=== PATIENT | female | born 1925 | race Caucasian/White ===

== ENCOUNTER 2017-02-24 21:05 | Inpatient (IN) | payer MEDICARE ==
[2017-02-24] MEDS ORDERED: MORPHINE SULFATE 4 MG/ML SYRINGE IV STA (22:06)
[2017-02-24] MEDS ORDERED: SODIUM CHLORIDE 0.9% 1,000 ML IV STA (22:06)
[2017-02-24] MEDS ORDERED: SODIUM CHLORIDE 0.9% 500 ML IV STA (22:06)
--- NOTE | 2017-02-24 22:18 | ED ---
General Adult HPI - General Chief complaint: Fall Stated complaint: Fall Time Seen by Provider: 02/24/17 21:29 Source: EMS, RN notes reviewed, old records reviewed Mode of arrival: EMS Limitations: altered mental status - History of Present Illness Initial comments: This is an 89-year-old female in the ER for reevaluation status post fall. Patient a fall from standing fell backwards landing on leg back and right hip. Denies having had. Patient's poor strain history obtained from family who is with her, follows unwitnessed the patient was centimeters after falling, patient has a prior history of fall with left hip fracture. No blood thinners. Patient herself is complaining of pain in her right leg - Related Data Home Medications Medication Instructions Recorded Confirmed Donepezil [Aricept] 10 mg PO HS 08/23/14 02/24/17 Escitalopram [Lexapro] 10 mg PO DAILY 08/23/14 02/24/17 Melatonin 3 mg PO HS 08/23/14 02/24/17 Metoprolol Tartrate [Lopressor] 25 mg PO DAILY 08/23/14 02/24/17 Lactose-Reduced Food [Ensure Plus] 1 can PO BID 02/24/17 02/24/17 Loratadine [Claritin] 10 mg PO DAILY 02/24/17 02/24/17 Allergies Allergy/AdvReac Type Severity Reaction Status Date / Time No Known Allergies Allergy Verified 02/24/17 21:16 Review of Systems ROS Statement: Those systems with pertinent positive or pertinent negative responses have been documented in the HPI. ROS Other: All systems not noted in ROS Statement are negative. Past Medical History Past Medical History: Unable to Obtain, Dementia, Hyperlipidemia, Hypertension Additional Past Medical History / Comment(s): poor historian anxiety History of Any Multi-Drug Resistant Organisms: None Reported Past Surgical History: Unable to Obtain Additional Past Surgical History / Comment(s): poor historian Past Psychological History: Anxiety Smoking Status: Never smoker Past Alcohol Use History: None Reported Past Drug Use History: None Reported General Exam Limitations: altered mental status General appearance: alert, in no apparent distress Head exam: Present: atraumatic, normocephalic, normal inspection Eye exam: Present: normal appearance, PERRL, EOMI. Absent: scleral icterus, conjunctival injection, periorbital swelling ENT exam: Present: normal exam, mucous membranes moist Neck exam: Present: normal inspection. Absent: tenderness, meningismus, lymphadenopathy Respiratory exam: Present: normal lung sounds bilaterally. Absent: respiratory distress, wheezes, rales, rhonchi, stridor Cardiovascular Exam: Present: regular rate, normal rhythm, normal heart sounds. Absent: systolic murmur, diastolic murmur, rubs, gallop, clicks GI/Abdominal exam: Present: soft, normal bowel sounds. Absent: distended, tenderness, guarding, rebound, rigid Extremities exam: Present: normal inspection, full ROM, normal capillary refill , other (Right lower extremity is shortened). Absent: tenderness, pedal edema, joint swelling, calf tenderness Back exam: Present: normal inspection Neurological exam: Present: alert, oriented X3, CN II-XII intact Psychiatric exam: Present: normal affect, normal mood Skin exam: Present: warm, dry, intact, normal color. Absent: rash Course Vital Signs 02/24/17 21:08 Temperature 97.0 F L Pulse Rate 78 Respiratory 18 Rate Blood Pressure 162/77 O2 Sat by Pulse 93 L Oximetry EKG Findings - EKG Comments: EKG Findings:: EKG shows normal sinus rhythm rate of 81, AR 140, QRS 78, QTC 460 Medical Decision Making - Medical Decision Making And female here status post fall, right IT fracture comminuted, patient has prior orthopedic surgery by Dr. Nathaniel Montanez, patient will be admitted for surgical evaluation and treatment. Patient's pain is currently controlled - Lab Data Result diagrams: 02/24/17 22:25 Lab Results 02/24/17 02/24/17 Range/Units 22:25 22:25 WBC 18.5 H (3.8-10.6) k/uL RBC 4.38 (3.80-5.40) m/uL Hgb 13.5 (11.4-16.0) gm/dL Hct 41.5 (34.0-46.0) % MCV 94.8 (80.0-100.0) fL MCH 30.8 (25.0-35.0) pg MCHC 32.5 (31.0-37.0) g/dL RDW 13.6 (11.5-15.5) % Plt Count 311 (150-450) k/uL Neutrophils % 93 % Lymphocytes % 4 % Monocytes % 3 % Eosinophils % 0 % Basophils % 0 % Neutrophils # 17.1 H (1.3-7.7) k/uL Lymphocytes # 0.7 L (1.0-4.8) k/uL Monocytes # 0.5 (0-1.0) k/uL Eosinophils # 0.0 (0-0.7) k/uL Basophils # 0.1 (0-0.2) k/uL PT 11.0 (9.0-12.0) sec INR 1.1 (<1.1) APTT 25.1 (22.0-30.0) sec - Radiology Data Radiology results: report reviewed (X-ray right hip is positive for fracture, chest x-ray negative), image reviewed Disposition Clinical Impression: Fall, Closed right hip fracture Disposition: ADMITTED IP TO THIS [facility] Condition: Fair Referrals: None,Stated [Primary Care Provider] - 1-2 days
[2017-02-24 22:40] LABS: Basophils # (A) 0.1 k/uL (0-0.2); Basophils % (A) 0 %; CH 30.7; CHCM 32.6; Eosinophils % (A) 0 %; HCT 41.5 % (34.0-46.0); HDW 2.38; HGB 13.5 gm/dL (11.4-16.0); Luc % (Auto) 1; Lymphocytes # (A) 0.7 k/uL (1.0-4.8); Lymphocytes % (A) 4 %; MCH 30.8 pg (25.0-35.0); MCHC 32.5 g/dL (31.0-37.0); MCV 94.8 fL (80.0-100.0); Mean Platelet Volume 7.5; Monocytes # (A) 0.5 k/uL (0-1.0); Monocytes % (A) 3 %; Neutrophils # (A) 17.1 k/uL (1.3-7.7); Neutrophils % (A) 93 %; RBC 4.38 m/uL (3.80-5.40); RDW 13.6 % (11.5-15.5); WBC 18.5 k/uL (3.8-10.6); WBC (Perox) 19.59
[2017-02-24 22:49] LABS: ALT 22 U/L (9-52); AST 17 U/L (14-36); Alkaline Phosphatase 79 U/L (38-126); Anion Gap 7 mmol/L; Blood Urea Nitrogen 16 mg/dL (7-17); Calcium 8.5 mg/dL (8.4-10.2); Carbon Dioxide 28 mmol/L (22-30); Chloride 105 mmol/L (98-107); Glucose 111 mg/dL (74-99); Non-African American GFR(MDRD) >60 (>60 ml/min/1.73 sqM); Phosphorous 3.7 mg/dL (2.5-4.5); Potassium 4.2 mmol/L (3.5-5.1); Sodium 140 mmol/L (137-145); Total Bilirubin 0.4 mg/dL (0.2-1.3); Total Protein 6.3 g/dL (6.3-8.2)
[2017-02-24 22:53] LABS: INR 1.1 (<1.1); Partial Thromboplastin Time 25.1 sec (22.0-30.0)
[2017-02-24 23:06] LABS: Creatine Kinase 24 U/L (30-135)
[2017-02-24 23:17] LABS: Creatine Kinase MB 0.8 ng/mL (0.0-2.4); Troponin I <0.012 ng/mL (0.000-0.034)
--- NOTE | 2017-02-24 23:22 | XR ---
EXAM: XR Chest, 1 View. CLINICAL HISTORY: Reason: Weakness TECHNIQUE: Frontal view of the chest. COMPARISON: Chest radiograph on 09/06/2014 FINDINGS: Hardware: None. Lungs/pleura: Hyperinflation of the lungs which may be seen with COPD. Increased prominence of the pulmonary vasculature and interstitial markings bilaterally. Small left pleural effusion versus pleural thickening. No focal consolidation. No pneumothorax. Heart/mediastinum: Stable mild cardiomegaly. Atherosclerotic calcifications of the aorta. Soft tissues: Unremarkable. Bones: Degenerative changes of the shoulders and acromioclavicular joints. No acute fracture. Upper abdomen: Normal. IMPRESSION: 1. Stable mild cardiomegaly with pulmonary vasculature congestion and probable mild interstitial pulmonary edema. Small left pleural effusion versus pleural thickening. 2. Hyperinflation of the lungs may represent COPD.
--- NOTE | 2017-02-24 23:28 | XR ---
EXAM: XR Right Hip With Pelvis When Performed, 2 or 3 Views. CLINICAL HISTORY: Reason: Pain TECHNIQUE: Two or three views of the right hip, with pelvis when performed. COMPARISON: None FINDINGS: Bones/joints: Intramedullary denise and screw fixation of the left femur with healed fracture. Irregularity of the cortex of the right greater trochanter is suspicious for acute fracture. Degenerative changes of the lower lumbar spine. No hip dislocation. Soft tissues: Surgical clip overlying the medial right iliac bone. IMPRESSION: Irregularity of the cortex of the right greater trochanter suspicious for acute fracture, nondisplaced. Correlate appearance with priors if available.
[2017-02-25 00:18] LABS: Appearance,Urine Clear (Clear); Bilirubin,Urine Negative (Negative); Glucose,Urine (UA) Negative (Negative); Ketones,Urine Trace (Negative); Leukocyte Esterase,Urine Negative (Negative); Nitrite,Urine Negative (Negative); PH, Urine 6.5 (5.0-8.0); Particle Count 472; Protein,Urine Negative (Negative); RBC,Urine 11 /hpf (0-5); Specific Gravity,Urine 1.014 (1.001-1.035); Squamous Epithelial Cell,Urine <1 /hpf (0-4); UA Billing (MACRO vs. MICRO) MICRO; Urobilinogen,Urine <2.0 mg/dL (<2.0); WBC,Urine <1 /hpf (0-5)
[2017-02-25 00:49] VITALS: BMI 18.3
[2017-02-25] MEDS: ACETAMINOPHEN IV (For NPO) 1,000 MG in EMPTY BAG 1 BAG IVPB SCH ×4 (00:54→15:56)
[2017-02-25] MEDS: MORPHINE SULFATE 4 MG/ML SYRINGE IVP PRN ×3 (05:10→16:05)
[2017-02-25] MEDS: ENOXAPARIN 40 MG/0.4 ML SYRINGE SQ SCH ×2 (07:16→08:33)
--- NOTE | 2017-02-25 08:59 | P.HPOR ---
History of Present Illness H&P Date: 02/25/17 Chief Complaint: Right hip pain; status post fall; right hip fracture Patient is a 89-year-old female who is seen and examined at the bedside after she was admitted to our service for right intertrochanteric fracture. Patient sustained a fall early this morning, 02/25/2017, and was brought to the emergency department for further evaluation. Patient is confused and is not able to answer questions easily. When asked about symptoms in regards to her right hip and function of her right hip, she frequently states "Just leave it alone. It's okay." X-rays of the pelvis and right hip were taken in the emergency department that showed evidence of irregularity of the cortex of the right greater trochanter suspicious for acute fracture, nondisplaced along with evidence of previous intramedullary denise and screw fixation of the left femur that is well healed. The emergency physician stated clinically the patient presented with a right intertrochanteric hip fracture. Upon further labs, patient also has elevated white blood cell count 18.5 with increased neutrophils at 17.1. Patient does have increased pain with internal and external rotation of the right hip. Patient states her pain is controlled while lying flat in bed. Past Medical History Past Medical History: Unable to Obtain, Dementia, Hyperlipidemia, Hypertension Additional Past Medical History / Comment(s): poor historian anxiety History of Any Multi-Drug Resistant Organisms: None Reported Past Surgical History: Unable to Obtain Additional Past Surgical History / Comment(s): poor historian Past Psychological History: Anxiety Smoking Status: Never smoker Past Alcohol Use History: None Reported Past Drug Use History: None Reported Medications and Allergies Home Medications Medication Instructions Recorded Confirmed Type Donepezil [Aricept] 10 mg PO HS@199908/23/14 02/25/17 History Melatonin 3 mg PO HS@199908/23/14 02/25/17 History Lactose-Reduced Food [Ensure Plus] 1 can PO BID@1000,1900 02/24/17 02/25/17 History Loratadine [Claritin] 10 mg PO HS@199902/24/17 02/25/17 History Escitalopram Oxalate [Lexapro] 10 mg PO DAILY@0800 02/25/17 02/25/17 History Metoprolol Succinate [Toprol XL] 25 mg PO HS@199902/25/17 02/25/17 History guaiFENesin 400 mg PO QID 02/25/17 02/25/17 History Allergies Allergy/AdvReac Type Severity Reaction Status Date / Time No Known Allergies Allergy Verified 02/25/17 08:36 Physical Examination Physical exam: Patient is awake and alert, but is confused; She does have some difficulty with answering questions Vital signs stable Good chest excursion with deep inspiration and expiration Abdomen soft nontender Right lower extremity is shortened and slightly externally rotated Pain with palpation of the right hip Significant pain with internal and external rotation of the right hip No pain with internal and external rotation of the left hip Neurovascularly intact bilateral lower extremities Dorsiflexion, plantarflexion, and extensor hallucis longus positive sustained bilaterally Calves are soft and supple; No signs or symptoms of DVT; No calf pain; pneumatic cuffs intact bilateral lower extremities Results Pertinent studies: X-ray of the pelvis and right hip: Irregularity of the cortex of the right greater trochanter suspicious for acute fracture, nondisplaced; evidence of previous intramedullary denise and screw fixation of the left femur that appears to be well-healed; no evidence of hip dislocation Urine analysis: Trace ketones and urine blood; urine RBC 11 - Labs Labs: Abnormal Lab Results - Last 24 Hours (Table) 02/24/17 Range/Units 23:45 Urine Ketones Trace H (Negative) Urine Blood Trace H (Negative) Urine RBC 11 H (0-5) /hpf Result Diagrams: 02/24/17 22:25 02/24/17 22:25 Assessment and Plan (1) Right hip pain Status: Acute (2) Leukocytosis Status: Acute (3) Confusion Status: Acute (4) Closed right hip fracture Status: Acute (5) Fall Status: Acute Plan: Assessment: Status post fall Right intertrochanteric hip fracture Right hip pain Confusion Leukocytosis Plan: 1. We will currently planned to obtain a CT of the right hip for further evaluation of her right hip. If the CT confirms right intertrochanteric fracture, we will most likely plan for surgical intervention on Saturday, 02/27, pending medical clearance. At this time patient also has an increased white blood cell count 18.5 with increased neutrophils 17.1. A urinalysis was taken which does not show evidence of urinary tract infection. She'll need further evaluation by medicine. She will remain on bed rest while remaining nonweightbearing on the right lower extremity. At this time we will discontinue nothing by mouth status and she may resume a regular diet. We will continue follow patient closely. 2. Dr. Spencer in medicine has been consulted for medical clearance and for further evaluation and treatment for her other medical diagnoses 3. I have discussed this patient in detail with Dr. Neftaly Gross and he agrees with this plan Time with Patient: Less than 30
--- NOTE | 2017-02-25 10:33 | CT ---
EXAMINATION TYPE: CT hip RT wo con DATE OF EXAM: 02/25/2017 10:16 AM COMPARISON: NONE HISTORY: right hip pain CT DLP: 396.0 mGycm Automated exposure control for dose reduction was used. Unenhanced CT of the right hip was performed. Bone and soft tissue window settings are submitted. FINDINGS: There is a right-sided intratrochanteric fracture identified. Fracture component extends minimally in to the proximal femoral diaphysis. Mild cranial migration of the distal fracture component. No eviden ce for underlying pathologic component at this time. Femoral neck is intact. Acetabulum is intact. Zamora rrounding soft tissue edema is noted. No pelvic mass is identified. IMPRESSION: RIGHT-SIDED INTRATROCHANTERIC FRACTURE DISCUSSED.
[2017-02-25] MEDS ORDERED: LORazepam 2 MG/ML SYRINGE IV PRN (12:39)
[2017-02-25] MEDS: SODIUM CHLORIDE 0.9% 1,000 ML IV SCH (15:56)
[2017-02-25] MEDS: guaiFENesin SYRUP 100MG/5ML 200 MG/10 ML CUP PO SCH ×2 (16:37→22:15)
[2017-02-25] MEDS ORDERED: LORATADINE 10 MG TAB PO SCH (20:00)
[2017-02-25] MEDS: METOPROLOL SUCCINATE (ER) 25 MG TAB.ER.24H PO SCH (20:08)
[2017-02-25] MEDS: DONEPEZIL 10 MG TAB PO SCH (20:08)
--- NOTE | 2017-02-26 05:47 | CONS ---
DATE OF CONSULTATION: REASON FOR CONSULTATION: Advice regarding hypertension and other multiple medical problems and change in mental status, requested by Orthopedic Surgery. HISTORY OF PRESENT ILLNESS: This 89-year-old woman with a past history of dementia, hypertension, hyperlipidemia, history of anxiety who was brought to [facility] after a fall. Patient apparently fell backwards from standing position. Patient suffered right hip pain and the patient was admitted for further evaluation and treatment. The patient progressive change in mental status and patient is combative and restless on the floor. The white count is elevated is 18.5. UA was only showing 11 RBCs. Chest x-ray was also done, which showed hyperinflation and some vascular congestion also. Otherwise, currently the patient unable to give current history as patient is confused and most of the history is taken by my discussion with staff and as well as review of the chart at this time. Surgery is tentatively being scheduled for Saturday. PAST MEDICAL HISTORY: History of dementia, hypertension, hyperlipidemia, history of anxiety, not otherwise specified. Medications prior to admission include: 1. Guaifenesin 400 mg q.i.d. 2. Toprol XL 25 mg q.h.s. 3. Melatonin 3 mg q.h.s. 4. Claritin 10 mg q.h.s. 5. Lexapro 10 mg daily. 6. Ensure one p.o. b.i.d. 7. Aricept 10 mg q.h.s. Allergies are none. FAMILY HISTORY, SOCIAL HISTORY, REVIEW OF SYSTEMS: Could not be taken at length because of change in mental status. No history of smoking. No history of any previous family history per chart. PHYSICAL EXAM: The patient is drowsy, but confused, arousable. Pulse 97, blood pressure 132/60, respirations 17, temperature 96.1, pulse ox 93% on room air. HEENT: Conjunctivae normal. Oral mucosa moist. NECK: No jugular venous distention. No carotid bruit. No lymph node enlargement. CARDIOVASCULAR: S1 and S2, muffled. No S3, no S4. RESPIRATORY: Breath sounds diminished at the bases. No rhonchi, no crackles. ABDOMEN: Soft, nontender. LEGS: Status post hip fracture. NERVOUS SYSTEM: Higher function as mentioned. Moves all 4 limbs. No focal motor or sensory deficits. LYMPHATICS: No lymphadenopathy of neck, axillae or groin. SKIN: No ulcer, rash or bleeding. LABS: WBC 18.5, hemoglobin 13.5. Glucose 111. Albumin is 3.2. UA noted. ASSESSMENT: 1. Status post right hip fracture. 2. Change in mental status, metabolic encephalopathy, acute on chronic. 3. Increased WBC, possibly reactive. 4. History of dementia. 5. Hypoalbuminemia with mild to moderate protein calorie malnutrition. 6. Hypertension, essential. 7. Hyperlipidemia. 8. History of anxiety, not otherwise specified. 9. Body mass index 18.2 with severe protein calorie malnutrition. 10. Chronic obstructive pulmonary disease on the chest x-ray. 11. FULL CODE. RECOMMENDATIONS AND DISCUSSION: In this 89-year-old woman who presented with multiple complex medical problems, will monitor the patient closely. Continue the current medications. Continues symptomatic treatment. I would recommend Ativan p.r.n. for anxiety, Haldol also may be used for severe agitation. Other than that, I would recommend cautious IV fluids. Repeat labs. The chest x-ray was reviewed also. The EKG showed nonspecific ST changes. No acute changes are noted. Overall prognosis guarded because of multiple complex medical issues. Will monitor the patient closely. Currently, the patient is stable, cleared for surgery if the extra risks because of the multiple other medical problems was acceptable. No evidence of any obvious infection at this time. Will continue to monitor. If the white count remains elevated along with fever, the patient might benefit from antibiotics. We will continue to monitor. Further recommendations to follow. MTDD
[2017-02-26] MEDS: HALOPERIDOL 1 MG TAB PO PRN ×3 (06:27→21:54)
[2017-02-26 07:36] LABS: Basophils % (A) 0 %; CHCM 31.2; Eosinophils # (A) 0.1 k/uL (0-0.7); Eosinophils % (A) 1 %; HCT 40.7 % (34.0-46.0); HDW 2.29; HGB 12.8 gm/dL (11.4-16.0); Luc # (Auto) 0.14; Luc % (Auto) 1; Lymphocytes # (A) 0.8 k/uL (1.0-4.8); Lymphocytes % (A) 8 %; MCH 30.3 pg (25.0-35.0); MCHC 31.4 g/dL (31.0-37.0); MCV 96.7 fL (80.0-100.0); Mean Platelet Volume 7.2; Monocytes # (A) 0.5 k/uL (0-1.0); Monocytes % (A) 5 %; Neutrophils # (A) 9.2 k/uL (1.3-7.7); Neutrophils % (A) 86 %; RDW 13.7 % (11.5-15.5); WBC 10.7 k/uL (3.8-10.6); WBC (Perox) 11.39
[2017-02-26 07:48] LABS: Anion Gap 10 mmol/L; Blood Urea Nitrogen 13 mg/dL (7-17); Calcium 8.5 mg/dL (8.4-10.2); Carbon Dioxide 24 mmol/L (22-30); Chloride 106 mmol/L (98-107); Glucose 90 mg/dL (74-99); Non-African American GFR(MDRD) >60 (>60 ml/min/1.73 sqM); Sodium 140 mmol/L (137-145)
[2017-02-26 08:07] LABS: Potassium 4.1 mmol/L (3.5-5.1)
[2017-02-26] MEDS: ENOXAPARIN 40 MG/0.4 ML SYRINGE SQ SCH (08:29)
[2017-02-26] MEDS: guaiFENesin SYRUP 100MG/5ML 200 MG/10 ML CUP PO SCH ×4 (08:30→23:21)
[2017-02-26] MEDS: ESCITALOPRAM 10 MG TAB PO SCH (08:30)
--- NOTE | 2017-02-26 09:11 | P.PN ---
Progress Note - Text Patient is a 89-year-old female who is seen and examined at the bedside after she was admitted to our service for right intertrochanteric fracture. Patient sustained a fall early this morning, 02/25/2017, and was brought to the emergency department for further evaluation. Patient is still confused and is not able to answer questions easily. CT of the right hip was performed yesterday the digital right-sided intertrochanteric hip fracture. We're currently planning for surgical intervention this afternoon. Patient has been cleared by Dr. Spencer in medicine. Patient continues to have have increased pain with internal and external rotation of the right hip. Patient states her pain is controlled while lying flat in bed. Physical exam: Patient is awake and alert, but is confused; She does have some difficulty with answering questions Vital signs stable Good chest excursion with deep inspiration and expiration Abdomen soft nontender Right lower extremity is shortened and slightly externally rotated Pain with palpation of the right hip Significant pain with internal and external rotation of the right hip No pain with internal and external rotation of the left hip Neurovascularly intact bilateral lower extremities Dorsiflexion, plantarflexion, and extensor hallucis longus positive sustained bilaterally Calves are soft and supple; No signs or symptoms of DVT; No calf pain; pneumatic cuffs intact bilateral lower extremities Pertinent studies: CT of the right hip: Right-sided intertrochanteric fracture with fracture component extending minimally into the proximal femoral diaphysis with mild cranial migration of the distal fracture component; no evidence for underlying pathologic component; femoral neck intact; acetabulum intact; no evidence of pelvic mass X-ray of the pelvis and right hip: Irregularity of the cortex of the right greater trochanter suspicious for acute fracture, nondisplaced; evidence of previous intramedullary denise and screw fixation of the left femur that appears to be well-healed; no evidence of hip dislocation Urine analysis: Trace ketones and urine blood; urine RBC 11 Assessment: Status post fall Right intertrochanteric hip fracture Right hip pain Confusion Leukocytosis Plan: 1. Following results of the CT the right hip which showed evidence of right- sided intertrochanteric hip fracture, we are currently planning for surgical intervention this afternoon, 02/26/2017. Surgery scheduled for right intramedullary gamma nail fixation for right intertrochanteric hip fracture tentatively scheduled for 4:30 PM. Patient has been seen and examined by Dr. Spencer in medicine and has been cleared for surgery. Her WBC has improved from 18.5 yesterday down to 10.7 today. She is currently nothing by mouth status and will remain nothing by mouth status until following surgical intervention. She will remain nonweightbearing on the right lower extremity and remain on bedrest. We will continue with pain control as prescribed. We will continue follow patient closely. 2. Dr. Spencer in medicine has been consulted for medical clearance and for further evaluation and treatment for her other medical diagnoses; patient is cleared for surgery per Dr. Spencer 3. I have discussed this patient in detail with Dr. Neftaly Gross and he agrees with this plan
[2017-02-26] MEDS ORDERED: traMADol 50 MG TAB PO SCH (13:00)
[2017-02-26] MEDS: FAMOTIDINE 20 MG TAB PO SCH ×2 (13:15→21:54)
[2017-02-26] MEDS: SODIUM CHLORIDE 0.9% 1,000 ML IV SCH (13:16)
[2017-02-26] MEDS: traMADol 50 MG TAB PO PRN (13:18)
--- NOTE | 2017-02-26 13:18 | PN ---
Patient is an 89-year-old admitted with right intertrochanteric fracture. Patient is completely confused at this point of time, although we will avoid all the narcotics. All the Opiates, benzodiazepines will be discontinued. We will use tramadol or Toradol for pain. Patient will be started on Pepcid and Xanax will be discontinued as well. Review of systems unable to obtain due to her clinical condition. Medications reviewed and medication changes as mentioned above. PHYSICAL EXAMINATION: VITAL SIGNS: Temperature 98.1, pulse 100. Patient is a bit agitated and confused, unable to assess orientation at this point of time and patient is on a p.r.n. Haldol for agitation. HEENT: Pupils are round and equally reacting to light. EOMI. No scleral icterus. No conjunctival pallor. Normocephalic, atraumatic. No pharyngeal erythema. No thyromegaly. CARDIOVASCULAR: S1 and S2 present. No murmurs, rubs, or gallops. PULMONARY: Chest is clear to auscultation, no wheezing or crackles. ABDOMEN: Soft, nontender, nondistended, normoactive bowel sounds. No palpable organomegaly. MUSCULOSKELETAL: No joint swelling or deformity. EXTREMITIES: No cyanosis, clubbing, or pedal edema. NEUROLOGICAL: Neurological examination as mentioned above in the general exam. Does not appear to have focal deficits, moving all 4 limbs. SKIN: No rashes. LABORATORY DATA: CBC, CMP, significant for improved WBC count. ASSESSMENT AND PLAN: 1. Status post right intertrochanteric fracture, the patient is going for surgery today. Patient is low risk for surgery. 2. Altered mental status secondary to toxic metabolic encephalopathy, most probably related to medications, management as mentioned above and can be related to pain as well. 3. Leukocytosis, reactive in nature. 4. Dementia probably senile dementia, I am unable to assess the severity of dementia at this point of time because of acute delirium and encephalopathy due to above-mentioned reasons. 5. Hypertension. 6. Hyperlipidemia for which we will go ahead and continue her home medications.
[2017-02-26] MEDS ORDERED: ceFAZolin 1,000 MG in SODIUM CHLORIDE 0.9% IRRIGATIO 1,000 ML IRRIGATION ONE (15:30)
[2017-02-26] MEDS ORDERED: ceFAZolin 1,000 MG in SODIUM CHLORIDE 0.9% 1,000 ML IRRIGATION ONE ×4 (15:34)
[2017-02-26] MEDS ORDERED: LACTATED RINGERS 1,000 ML IV ONE (16:18)
[2017-02-26] MEDS ORDERED: KETAMINE 10 MG/ML 20 ML VIAL ONE (17:00)
[2017-02-26] MEDS ORDERED: PROPOFOL 10 MG/ML 20 ML VIAL IV ONE (17:00)
[2017-02-26] MEDS ORDERED: ePHEDrine 50 MG/ML 1 ML AMP ONE (17:00)
[2017-02-26] MEDS ORDERED: MIDAZOLAM 2 MG/2 ML VIAL ONE (17:00)
[2017-02-26] MEDS ORDERED: LACTATED RINGERS 800 ML IV ONE (17:00)
[2017-02-26] MEDS ORDERED: SODIUM CHLORIDE 0.9% 50 ML with ceFAZolin 2,000 MG IV ONE ×2 (17:42)
--- NOTE | 2017-02-26 18:40 | P.OP ---
Date of Procedure: 02/26/17 Preoperative Diagnosis: Right intertrochanteric hip fracture, acute traumatic status post fall with osteoporosis Inability to ambulate Postoperative Diagnosis: Same Anesthesia: spinal Pathology: other (Proximal femur reaming sent to pathology) Condition: stable Disposition: PACU Description of Procedure: Preoperative diagnosis: Intertrochanteric femoral hip fracture, right acute traumatic due to fall with osteoporosis Postoperative diagnosis: Same Procedure: intertrochanteric hip screw placement Use of fluoroscopic guidance Closed reduction Surgeon: Dr. Renato Tyler.: Thanh Mcneal who is present that the entire the case persistence during positioning dissection exposure placement of hardware and closure Anesthesia: Spinal Estimated blood loss: Approximately 100 mL Components implanted: [employer] proximal hip IM hip screw with 125 short intramedullary InterTAN nail and lag and locking screw with distal locking screw Disposition: To recovery room in good stable condition Operative indications The patient sustained a injury and suffered a hip fracture at the inter- trochanteric area of her femur which was displaced and angulated. She has history of dementia but had been a limited ambulator generally with a walker. She sustained a fall at her assisted living home. She did not complain of other injuries but had a right hip fracture which was acute. We were involved in the case in regard to his hip fracture. After evaluation it was determined that they would be a candidate for hip hemiarthroplasty via surgical intervention. This would give them the best chance of mobilization and ambulation. We discussed the range of treatment options from conservative to surgical. They elected proceed with surgical intervention. We answered their questions to the best of our ability healing which they can understand. They signed an informed consent. Operative summary After obtaining informed consent evaluation by anesthesia, preoperative evaluation and clearance for medical service, the patient was identified and prepped Ingram area and the surgical site was marked. There brought to the operating room where the given appropriate anesthesia by the anesthesia department in standard fashion without any complications. Once the anesthesia was established we were able to position the patient. The patient was placed on a fracture table with a well-padded perineal post. The operative side on the right was placed in a foot ridley stirrup which was well-padded well molded and placed in gentle in-line traction. The nonoperative leg was placed in a padded stirrup. C-arm was brought in and we performed a closed reduction technique at the hip. We are able to get good alignment good position of the intertrochanteric fracture with gentle reduction techniques and traction utilizing the fracture table. Once patient was well positioned lower extremity was prepped and draped in normal standard sterile fashion. An appropriate keystone protocol and timeout was completed and were able to proceed with surgery. He started point just proximal to the greater trochanter was established and a median incision approximately 2 inches in length approximately to the greater trochanter. I dissected down through the fascia and I was able to expose the tip of the greater trochanter. A sharp starting hole was established at the tip of the greater trochanter near the junction of the anterior and middle third. Positioning was confirmed with C-arm guidance. I was able to start the awl into the bone and then use a guidepin at the starting point establish down to the level of the lesser trochanter at the intramedullary space. I then used a starting reamer for the greater trochanter placed over the guidepin and reamed down appropriately under C-arm guidance. I was able to place a guidepin into the intramedullary aspect of the femur and then reamed appropriately to the appropriate length. The positioning was confirmed on C-arm guidance. With the femur appropriately reamed I then chose the appropriate size intramedullary denise which was connected to the appropriate jig. The jig was checked for alignment. The area was copiously irrigated and suctioned dry and we're able place the denise at intramedullary space through the starting hole appropriately. It was seated down for appropriate position to align the leg pain into the femoral neck and head. A second incision was established at the site for the placement of the lag screw area and the guide was established at the lateral aspect of the femur and a guidepin was drilled into the femoral neck and head and near center center position. With this appropriate alignment and position where a reamer over the guidepin making sure not to penetrate the articular surface. The position was confirmed on C-arm guidance in AP and lateral positions. With this established we were able to place the appropriate size lag screw after measuring. Lag screw was placed into the femoral neck and head good alignment good position with excellent bony purchase. The locking screw proximally was also placed and had good compression at the fracture site. It was appropriately aligned and we placed a locking screw through the denise appropriately and checked that the position was established. With the area in good position able place a distal locking screw. We utilized the guide sleeve through a separate incision that was made at the skin. The guide sleeve was placed in the lateral aspect of the femur and the distal locking screw hole was established through the femur and distal locking hole of the intramedullary denise. It was measured appropriately and a distal locking screw was placed in good alignment and good position with excellent bony purchase. The position was checked to make sure it was through the appropriate hole in the intramedullary denise. With this established we're able to remove the jig completely from the denise and final images were taken which showed excellent alignment and position of the hardware and the fracture. With the denise in place and the fracture stable, although the incision sites were copiously irrigated and suctioned dry. Good hemostasis was maintained. Deep fascial layers were closed with #1 Vicryl. Subcu tissue was closed with 2-0 Vicryl. Subcuticular tissues closed with 3-0 Vicryl. Was are cleaned and dried with dressed with Mastisol and Steri-Strips Telfa for a force and tape. Drapes were broken down, the hip was held in stable position with the post being removed safely once the positioning was stabilized. The patient was then transferred back to their hospital bed being careful to maintain the hip and C- spine alignment and airway. Once stable to patient was transferred back to the postanesthesia care unit to be readmitted for pain control and DVT prophylaxis medical management and monitoring and mobilization we will continue follow patient closely throughout their postoperative course.
[2017-02-26] MEDS ORDERED: NALOXONE 0.4 MG/ML 1 ML VIAL IV PRN (18:41)
[2017-02-26] MEDS ORDERED: MAGNESIUM HYDROXIDE 2,400 MG/10 ML CUP PO PRN (18:41)
[2017-02-26] MEDS ORDERED: Acetaminophen-Codeine 300-30mg TAB PO PRN (18:41)
[2017-02-26] MEDS ORDERED: HYDROmorphone 1 MG/ML 1 ML SYRINGE IVP PRN (18:41)
[2017-02-26] MEDS ORDERED: NON-FORMULARY DRUG (Lactose-Reduced Food [Ensure Plus] 1 CAN) PO SCH (19:00)
[2017-02-26] MEDS: KETOROLAC 30 MG/ML 1 ML VIAL IVP PRN (21:54)
[2017-02-26] MEDS: DONEPEZIL 10 MG TAB PO SCH (21:54)
[2017-02-26] MEDS: METOPROLOL SUCCINATE (ER) 25 MG TAB.ER.24H PO SCH (21:54)
[2017-02-27] MEDS: MELATONIN 3 MG TABLET PO SCH ×2 (00:02→20:47)
[2017-02-27] MEDS: ceFAZolin 2 GM in SODIUM CHLORIDE 0.9% 100 ML IVPB SCH ×2 (00:03→08:13)
[2017-02-27 07:13] LABS: Basophils % (A) 1 %; CH 30.5; CHCM 32.4; Eosinophils # (A) 0.1 k/uL (0-0.7); Eosinophils % (A) 2 %; HCT 34.4 % (34.0-46.0); HDW 2.39; HGB 10.9 gm/dL (11.4-16.0); Luc # (Auto) 0.18; Luc % (Auto) 3; Lymphocytes # (A) 1.1 k/uL (1.0-4.8); Lymphocytes % (A) 16 %; MCH 30.2 pg (25.0-35.0); MCHC 31.8 g/dL (31.0-37.0); Mean Platelet Volume 7.8; Monocytes # (A) 0.5 k/uL (0-1.0); Monocytes % (A) 7 %; Neutrophils # (A) 4.8 k/uL (1.3-7.7); Neutrophils % (A) 72 %; RBC 3.62 m/uL (3.80-5.40); RDW 13.8 % (11.5-15.5); WBC 6.7 k/uL (3.8-10.6); WBC (Perox) 7.57
[2017-02-27 07:23] LABS: Anion Gap 8 mmol/L; Blood Urea Nitrogen 16 mg/dL (7-17); Calcium 7.9 mg/dL (8.4-10.2); Carbon Dioxide 26 mmol/L (22-30); Chloride 106 mmol/L (98-107); Glucose 91 mg/dL (74-99); Non-African American GFR(MDRD) >60 (>60 ml/min/1.73 sqM); Potassium 3.7 mmol/L (3.5-5.1); Sodium 140 mmol/L (137-145)
--- NOTE | 2017-02-27 07:27 | FL ---
Fluoroscopy History: RIGHT IT NAIL RIGHT IT NAIL; DR. ARITA; THREE SCANNED FILMS; FL TIME 29 SECONDS
[2017-02-27] MEDS: ENOXAPARIN 40 MG/0.4 ML SYRINGE SQ SCH (08:13)
[2017-02-27] MEDS: ESCITALOPRAM 10 MG TAB PO SCH (08:13)
[2017-02-27] MEDS: FAMOTIDINE 20 MG TAB PO SCH (08:14)
[2017-02-27] MEDS: HALOPERIDOL 1 MG TAB PO PRN (10:33)
[2017-02-27] MEDS: KETOROLAC 30 MG/ML 1 ML VIAL IVP PRN (10:35)
[2017-02-27] MEDS: guaiFENesin SYRUP 100MG/5ML 200 MG/10 ML CUP PO SCH ×4 (11:38→20:49)
--- NOTE | 2017-02-27 14:57 | PN ---
Patient is an 89-year-old female admitted for right intertrochanteric fracture and patient is confused, due to narcotic pain medications. She is doing much better today. Patient underwent surgical correction yesterday. REVIEW OF SYSTEMS: CARDIOVASCULAR: No chest pain, no orthopnea, no PND, no palpitations. PULMONARY: Denied any shortness of breath. No cough or hemoptysis. GASTROINTESTINAL: No diarrhea, nausea or vomiting. No abdominal pain. Normoactive bowel sounds. NEUROLOGIC: No headaches, no weakness, no numbness. Medications are reviewed. PHYSICAL EXAMINATION: Temperature 97.8, pulse of 93, respiratory rate of 16, blood pressure 128/58, saturating at 94% on 2 L of of O2 by nasal cannula. GENERAL: The patient is alert and oriented x3, not in any acute distress. Well developed, well nourished. HEENT: Pupils are round and equally reacting to light. EOMI. No scleral icterus. No conjunctival pallor. Normocephalic, atraumatic. No pharyngeal erythema. No thyromegaly. CARDIOVASCULAR: S1 and S2 present. No murmurs, rubs, or gallops. PULMONARY: Chest is clear to auscultation, no wheezing or crackles. ABDOMEN: Soft, nontender, nondistended, normoactive bowel sounds. No palpable organomegaly. MUSCULOSKELETAL: Defer to Orthopedic Surgery. EXTREMITIES: No cyanosis, clubbing, or pedal edema. NEUROLOGICAL: Patient is alert and oriented x2 to almost 3. Does not have any new focal neurological deficits. SKIN: No rashes. LABORATORY DATA: CBC, CMP within normal limits except for a drop in hemoglobin to 10.9, which is acute blood loss anemia from surgery. ASSESSMENT AND PLAN: 1. Right intertrochanteric fracture, status post surgery and patient underwent surgical correction. Clinically doing well. Pain is well-controlled. Discontinued opiates at this point of time. Altered mental status secondary to toxic metabolic encephalopathy secondary to medications. Much better improved today. 2. Leukocytosis. 3. 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 4. Hypertension. 5. Hyperlipidemia. PLAN: Continue with present medication. Continue to follow, discontinue IV fluids and encourage her to drink water. Possibility of discharge in a day or two to subacute rehab when Orthopedic Surgery clears her.
--- NOTE | 2017-02-27 16:09 | P.PN ---
Progress Note - Text Patient is a very pleasant 89-year-old female who is seen and examined at the bedside for further evaluation after undergoing right intertrochanteric hip screw placement for right intertrochanteric femoral hip fracture performed yesterday, 02/26/2017. He continues to have some confusion but is answering questions more appropriately today. She's been eating and voiding without difficulty. Her Ingram catheter has been discontinued. She has been able to urinate without significant difficulty. She is weightbearing as tolerated status on the right lower extremity and has been able to ambulate to the restroom with assistance. She is progressing well postsurgically. It has been discussed with her family and case management about possible discharged to [facility]. If the patient continues to improve, we will plan for discharge tomorrow to [facility] as she has already been accepted. She states her pain is improved and she feels better than she did prior to surgical intervention. She has no new complaints today. Physical Exam Intramedullary Screw Fixation for Intertrochanteric Fracture: Status post surgical day number 1 Patient is examined lying in bed Patient is awake and alert, and oriented 3; patient communicates and answers questions better today Vital signs stable Good chest excursion with deep inspiration and expiration; patient currently on O2 nasal cannula Abdomen soft nontender No signs or symptoms of DVT; no calf pain Lower extremity cuffs in place bilaterally Dressing of the right hip is clean, dry, and intact; no erythema, purulence, or signs of infection Full range of motion of ankles bilaterally Dorsiflexion, plantarflexion, and extensor hallucis longus positive sustained bilaterally Neurovascularly intact bilateral lower extremities Capillary refill less than 2 seconds bilateral lower extremities Assessment: Status post right intertrochanteric hip screw placement for right intertrochanteric femoral hip fracture Status post fall with osteoporosis Confusion Plan: 1. Patient to weightbearing as tolerated on the right lower extremity; patient may work with physical therapy to increase mobility and ambulation 2. Continue pain control 3. We will continue with Lovenox 40 mg subcu daily for anticoagulation therapy ; patient will plan to be discharged with a Lovenox 40 mg prescription for 4 weeks 4. Medicine to continue following the patient for his other medical issues; medicine to continue with anticoagulation therapy 5. We'll continue to follow the patient; patient has been progressing well postsurgically. If the patient continues to improve, we will plan for her discharge tomorrow to [facility] rehabilitation facility. After further his custom with case management, patient has already been accepted by [facility]. 6. Patient can follow-up with Thanh Alves PA-C or Dr. Neftaly Gross at [facility] in 3 weeks following discharge
[2017-02-27] MEDS: traMADol 50 MG TAB PO PRN (18:09)
[2017-02-27] MEDS: SODIUM CHLORIDE 0.9% 1,000 ML IV SCH (18:09)
[2017-02-27] MEDS: DONEPEZIL 10 MG TAB PO SCH (20:47)
[2017-02-27] MEDS: METOPROLOL SUCCINATE (ER) 25 MG TAB.ER.24H PO SCH (20:47)
[2017-02-28 07:36] LABS: Basophils % (A) 1 %; CH 30.1; CHCM 31.3; Eosinophils # (A) 0.2 k/uL (0-0.7); Eosinophils % (A) 3 %; HCT 34.8 % (34.0-46.0); HDW 2.36; HGB 10.9 gm/dL (11.4-16.0); Luc # (Auto) 0.25; Luc % (Auto) 4; Lymphocytes # (A) 1.3 k/uL (1.0-4.8); Lymphocytes % (A) 19 %; MCH 30.4 pg (25.0-35.0); MCHC 31.4 g/dL (31.0-37.0); MCV 96.8 fL (80.0-100.0); Mean Platelet Volume 7.3; Monocytes # (A) 0.5 k/uL (0-1.0); Monocytes % (A) 6 %; Neutrophils # (A) 4.9 k/uL (1.3-7.7); Neutrophils % (A) 68 %; RBC 3.59 m/uL (3.80-5.40); RDW 14.1 % (11.5-15.5); WBC 7.1 k/uL (3.8-10.6); WBC (Perox) 7.57
[2017-02-28 07:54] LABS: Anion Gap 10 mmol/L; Blood Urea Nitrogen 18 mg/dL (7-17); Calcium 8.5 mg/dL (8.4-10.2); Carbon Dioxide 25 mmol/L (22-30); Chloride 105 mmol/L (98-107); Glucose 100 mg/dL (74-99); Non-African American GFR(MDRD) >60 (>60 ml/min/1.73 sqM); Potassium 3.8 mmol/L (3.5-5.1); Sodium 140 mmol/L (137-145)
[2017-02-28] MEDS: ENOXAPARIN 40 MG/0.4 ML SYRINGE SQ SCH (08:14)
[2017-02-28] MEDS: FAMOTIDINE 20 MG TAB PO SCH (08:15)
[2017-02-28] MEDS: ESCITALOPRAM 10 MG TAB PO SCH (08:15)
[2017-02-28] MEDS: traMADol 50 MG TAB PO PRN ×2 (08:17→14:21)
[2017-02-28] MEDS: KETOROLAC 30 MG/ML 1 ML VIAL IVP PRN (08:18)
[2017-02-28] MEDS: guaiFENesin SYRUP 100MG/5ML 200 MG/10 ML CUP PO SCH ×4 (08:34→22:00)
--- NOTE | 2017-02-28 09:45 | P.DS ---
Providers Date of admission: 02/24/17 22:57 Attending physician: Nathaniel Montanez Consults: 02/25/17 04:46 Consult Physician Routine Consulting Provider: Brock Spencer Consult Reason/Comments: mgmt Do you want consulting provider notified?: Yes Primary care physician: Stated None Hospital Course: The patient presented on the day of admission as per her operative note. She is very pleasant 89-year-old female with history of some dementia who is normally a ambulator with a walker. She sustained a fall and fractured her right hip for which she was admitted. She had clearance and evaluation and underwent surgical intervention with internal fixation of her right hip intertrochanteric fracture. Postoperatively she has made significant improvement. She has improved her mobility and appears to be more and more comfortable. She has no new complaints. Physical Exam The incision site is clean dry and intact. There is no erythema no drainage. There is no purulence no evidence of infection. Her thigh and calf are soft nontender. She has sustained dorsal flexion plantar flexion and knee extension. Abdomen soft and nontender. Chest has good excursion with deep inspiration and expiration. The patient has active and passive range of motion intact at the upper and lower extremities. There is no acute change in neurologic status. Hospital Course Postoperative day #2 status post internal fixation of right hip intertrochanteric femur fracture, making good improvement Dementia Osteoporosis The patient has been making good progress postoperatively. They have completed the prophylactic antibiotics without any signs or symptoms of infection. The patient has been able to advance their diet, and is tolerating diet adequately. The pain was initially controlled with IV medications and is now controlled appropriately with oral medications. The patient has been able to increase their mobilization. She may weight-bear as tolerated on the right lower extremity. She should have some assistive device and assistance for her mobility. I think that she needs inpatient [facility] but should be stable for discharge to [facility] facility today from an orthopedic standpoint if she is cleared with medicine. The patient has progressed appropriately. I think they are in good stable condition for discharge today to [facility] facility if she is cleared with medicine. They will be sent home with appropriate prescriptions. I answered their questions to the best of my ability in a language that they can understand and they are agreeable with the plan. They will follow up as directed in approximately 2 weeks or sooner she is having any problems. Patient Condition at Discharge: Fair Plan - Discharge Summary New Discharge Prescriptions: Enoxaparin [Lovenox] 40 mg SQ DAILY #28 syringe traMADol HCl [Ultram] 50 mg PO Q6H PRN #90 tab PRN Reason: Pain Discharge Medication List Donepezil [Aricept] 10 mg PO HS@199908/23/14 [History] Melatonin 3 mg PO HS@199908/23/14 [History] Lactose-Reduced Food [Ensure Plus] 1 can PO BID@1000,1900 02/24/17 [History] Loratadine [Claritin] 10 mg PO HS@199902/24/17 [History] Escitalopram Oxalate [Lexapro] 10 mg PO DAILY@0800 02/25/17 [History] Metoprolol Succinate [Toprol XL] 25 mg PO HS@199902/25/17 [History] guaiFENesin 400 mg PO QID 02/25/17 [History] Enoxaparin [Lovenox] 40 mg SQ DAILY #28 syringe 02/27/17 [Rx] traMADol HCl [Ultram] 50 mg PO Q6H PRN #90 tab 02/27/17 [Rx] Follow up Appointment(s)/Referral(s): Thanh Alves, PAC [PHYSICIAN CHEF PASSENGER VESSEL] - 2 Weeks (Patient may follow-up with Thanh Alves PA-C or Dr. Neftaly Gross at [facility] in 2-3 weeks following discharge. ) None,Stated [Primary Care Provider] - 1-2 days Activity/Diet/Wound Care/Special Instructions: 1. Keep dressing over the right hip clean, dry, and intact; dressing may be removed in 3 days and patient may shower without a dressing at that time 2. Weight-bear as tolerated on the right lower extremity 3. Do not soak in tub 4. Avoid excessive activities in regards to her right lower extremity Discharge Disposition: TRANSFER TO SNF/ECF
--- NOTE | 2017-02-28 16:04 | P.PN ---
Subjective Date of service 02/28/2017 Progress note being dictated for Dr. Chowdhury. Interval history: This is a 89-year-old female admitted with right intertrochanteric fracture, status post internal fixation, and multiple other medical issues in a patient with moderate dementia. Mobility continues to improve. Pain controlled on Ultram. Consuming 50% of diet with no nausea vomiting. Passing flatus, no bowel movement. Currently sitting by the nurses station, pleasantly confused. Hemoglobin 10.9. Awaiting discharge to [facility] rehab. Denies chest pain, palpitations or increasing shortness of breath. Denies dizziness or lightheadedness. Objective - Vital Signs Vital signs: Vital Signs Temp 97.2 F L 02/28/17 14:59 Pulse 61 02/28/17 14:59 Resp 16 02/28/17 14:59 BP 158/70 02/28/17 14:59 Pulse Ox 93 L 02/28/17 14:59 Intake & Output 02/27/17 02/28/17 02/28/17 18:59 06:59 18:59 Intake Total 1220 Output Total 1000 Balance 220 Weight 45.359 kg 45.359 kg Intake: IV 500 Sodium Chloride 0.9% 1, 500 000 ml @ 50 mls/hr IV . Q20H [facility] Rx#:[id number] Oral 720 Output: Urine 1000 Uretheral (Ingram) 400 Other: Voiding Method Indwelling Catheter Indwelling Catheter # Voids 1 1 - Exam PHYSICAL EXAM: VITAL SIGNS: [As above] GENERAL: [Sitting up in chair, no acute distress] HEENT: [Pupils equal conjunctiva normal.] NECK: [Supple, no JVD] RESPIRATORY EFFORT:[Normal] LUNGS: [Clear to auscultation, no crackles, no wheezing] CARDIOVASCULAR[regular S1 and S2, no murmurs rubs or gallops] GI: [Abdomen soft, nontender, positive bowel sounds.] PSYCH: [Alert and oriented -1-2, pleasantly confused, cooperative NEURO: No new focal deficits - Labs CBC & Chem 7: 02/28/17 07:09 02/28/17 07:09 Labs: Abnormal Lab Results - Last 24 Hours (Table) 02/28/17 02/28/17 Range/Units 07:09 07:09 RBC 3.59 L (3.80-5.40) m/uL Hgb 10.9 L (11.4-16.0) gm/dL BUN 18 H (7-17) mg/dL Glucose 100 H (74-99) mg/dL Microbiology - Last 24 Hours (Table) 02/25/17 19:41 Blood Culture - Preliminary Blood No Growth after 48 hours Assessment and Plan Plan: 1. [Right intertrochanteric fracture,status post internal fixation surgical repair]. 2. [Leukocytosis, resolved]. 3. [Dementia, moderate, probably senile dementia]. 4. Hypertension. 5. [Hyperlipidemia]. Plan: Continue on current medication regime ,monitoring and symptomatic treatment. Continue avoiding narcotics; Ultram for pain management. Discharge planning in progress as per orthopedics for [facility] rehab, certification pending. Repeat CBC BMP in 3 days at [facility]. Further recommendations to follow. The impression and plan of care has been dictated as directed. : I performed a H&P examination of this patient and discussed the same with the dictator. I agree with the dictator's note. Any additional findings/opinions/ etc. will be noted.
[2017-02-28] MEDS: METOPROLOL SUCCINATE (ER) 25 MG TAB.ER.24H PO SCH (21:18)
[2017-02-28] MEDS: DONEPEZIL 10 MG TAB PO SCH (21:18)
[2017-02-28] MEDS: MELATONIN 3 MG TABLET PO SCH (21:18)
[2017-03-01 03:31] VITALS: BP 135/60; PULSE 68; RESP 18; TEMP 97.6
[2017-03-01 07:34] LABS: Basophils # (A) 0.1 k/uL (0-0.2); Basophils % (A) 1 %; CH 30.7; CHCM 31.9; Eosinophils # (A) 0.3 k/uL (0-0.7); Eosinophils % (A) 4 %; HCT 32.4 % (34.0-46.0); HDW 2.51; HGB 10.1 gm/dL (11.4-16.0); Luc # (Auto) 0.27; Luc % (Auto) 4; Lymphocytes # (A) 1.3 k/uL (1.0-4.8); Lymphocytes % (A) 18 %; MCH 30.1 pg (25.0-35.0); MCHC 31.1 g/dL (31.0-37.0); MCV 96.8 fL (80.0-100.0); Mean Platelet Volume 7.8; Monocytes # (A) 0.5 k/uL (0-1.0); Monocytes % (A) 7 %; Neutrophils # (A) 4.8 k/uL (1.3-7.7); Neutrophils % (A) 67 %; RBC 3.34 m/uL (3.80-5.40); RDW 14.3 % (11.5-15.5); WBC 7.2 k/uL (3.8-10.6); WBC (Perox) 7.99
[2017-03-01 07:45] LABS: Anion Gap 6 mmol/L; Blood Urea Nitrogen 20 mg/dL (7-17); Calcium 8.5 mg/dL (8.4-10.2); Carbon Dioxide 28 mmol/L (22-30); Chloride 107 mmol/L (98-107); Glucose 88 mg/dL (74-99); Non-African American GFR(MDRD) >60 (>60 ml/min/1.73 sqM); Potassium 3.9 mmol/L (3.5-5.1); Sodium 141 mmol/L (137-145)
[2017-03-01] MEDS: guaiFENesin SYRUP 100MG/5ML 200 MG/10 ML CUP PO SCH ×2 (08:40→11:50)
[2017-03-01] MEDS: ENOXAPARIN 40 MG/0.4 ML SYRINGE SQ SCH (08:42)
[2017-03-01] MEDS: ESCITALOPRAM 10 MG TAB PO SCH (08:42)
[2017-03-01] MEDS: FAMOTIDINE 20 MG TAB PO SCH (08:42)
[2017-03-01] MEDS: traMADol 50 MG TAB PO PRN (10:02)
[2017-03-01] MEDS ORDERED: BISACODYL 10 MG SUPP RECTAL STA (10:17)
[2017-03-01] MEDS ORDERED: DOCUSATE 100 MG CAP PO SCH (10:30)
[2017-03-01] MEDS ORDERED: NA PHOS,M-B/NA PHOS,DI-BA 133 ML ENEMA RECTAL ONE (10:33)
--- NOTE | 2017-03-01 14:55 | P.PN ---
Progress Note - Text Patient is a very pleasant 89-year-old female who is seen and examined at the bedside for further evaluation after undergoing right intertrochanteric hip screw placement for right intertrochanteric femoral hip fracture performed 02/26/2017. She continues to have some confusion but is answering questions more appropriately today. She's been eating and voiding without difficulty. Her Ingram catheter has been discontinued. She has been able to urinate without significant difficulty. She is weightbearing as tolerated status on the right lower extremity and has been able to ambulate to the restroom with assistance. She is progressing well postsurgically. She was prepared for discharge to [facility] yesterday but prior authorization had not been completed. This has since been completed and the patient is scheduled to be transferred to [facility] today. She states her pain is improved and she feels better than she did prior to surgical intervention. She has no new complaints today. Physical Exam Intramedullary Screw Fixation for Intertrochanteric Fracture: Status post surgical day number 3 Patient is examined lying in bed Patient is awake and alert, and oriented 3; patient communicates and answers questions better today Vital signs stable Good chest excursion with deep inspiration and expiration; patient currently on O2 nasal cannula Abdomen soft nontender No signs or symptoms of DVT; no calf pain Lower extremity cuffs in place bilaterally Dressing of the right hip is clean, dry, and intact; no erythema, purulence, or signs of infection Full range of motion of ankles bilaterally Dorsiflexion, plantarflexion, and extensor hallucis longus positive sustained bilaterally Neurovascularly intact bilateral lower extremities Capillary refill less than 2 seconds bilateral lower extremities Assessment: Status post right intertrochanteric hip screw placement for right intertrochanteric femoral hip fracture Status post fall with osteoporosis Confusion Plan: 1. Patient to weightbearing as tolerated on the right lower extremity; patient may work with physical therapy to increase mobility and ambulation 2. Continue pain control 3. We will continue with Lovenox 40 mg subcu daily for anticoagulation therapy ; patient will plan to be discharged with a Lovenox 40 mg prescription for 4 weeks 4. Medicine to continue following the patient for his other medical issues 5. We'll continue to follow the patient; patient has been progressing well postsurgically; currently scheduled for discharge to [facility] today 6. Patient can follow-up with Thanh Alves PA-C or Dr. Neftaly Gross at [facility] in 3 weeks following discharge
[2017-03-01] MEDS ORDERED: POTASSIUM CHLORIDE ER 20 MEQ TAB.ER PO STA (17:08)
--- NOTE | 2017-03-01 17:11 | P.PN ---
Subjective Date of service 03/01/2017 Progress note being dictated for Dr. Chowdhury. Interval history: This is a 89-year-old female admitted with right intertrochanteric fracture, status post internal fixation, and multiple other medical issues in a patient with moderate dementia. Mobility continues to improve. Pain improving. Passing flatus, positive bowel movement. Hemoglobin 10.1. Awaiting discharge to [facility] rehab. Denies chest pain, palpitations or increasing shortness of breath. Denies dizziness or lightheadedness. Objective - Vital Signs Vital signs: Vital Signs Temp 97.6 F 03/01/17 03:30 Pulse 68 03/01/17 08:00 Resp 18 03/01/17 08:00 BP 135/60 03/01/17 03:30 Pulse Ox 95 03/01/17 03:30 Intake & Output 02/28/17 03/01/17 03/01/17 18:59 06:59 18:59 Intake Total 600 Output Total 300 Balance 600 -300 Weight 45.359 kg Intake: Oral 600 Output: Urine 300 Other: Voiding Method Indwelling Catheter Indwelling Catheter Indwelling Catheter # Voids 1 3 # Bowel Movements 1 - Exam PHYSICAL EXAM: VITAL SIGNS: [As above] GENERAL: [Sitting up in chair, no acute distress] HEENT: [Pupils equal conjunctiva normal.] NECK: [Supple, no JVD] RESPIRATORY EFFORT:[Normal] LUNGS: [Clear to auscultation, no crackles, no wheezing] CARDIOVASCULAR[regular S1 and S2, no murmurs rubs or gallops] GI: [Abdomen soft, nontender, positive bowel sounds.] PSYCH: [Alert and oriented -2, pleasantly confused, cooperative NEURO: No new focal deficits - Labs CBC & Chem 7: 03/01/17 07:08 03/01/17 07:08 Labs: Abnormal Lab Results - Last 24 Hours (Table) 03/01/17 03/01/17 Range/Units 07:08 07:08 RBC 3.34 L (3.80-5.40) m/uL Hgb 10.1 L (11.4-16.0) gm/dL Hct 32.4 L (34.0-46.0) % BUN 20 H (7-17) mg/dL Microbiology - Last 24 Hours (Table) 02/25/17 19:41 Blood Culture - Preliminary Blood No Growth after 72 hours Assessment and Plan Plan: 1. [Right intertrochanteric fracture,status post internal fixation surgical repair]. 2. [Leukocytosis, resolved]. 3. [Dementia, moderate, probably senile dementia]. 4. Hypertension. 5. [Hyperlipidemia]. Plan: Continue on current medication regime ,monitoring and symptomatic treatment. Stool softeners added to med regime. Discharge planning in progress as per orthopedics for [facility] rehab, certification pending. Repeat CBC BMP in 3 days at [facility]. Further recommendations to follow. The impression and plan of care has been dictated as directed. : I performed a H&P examination of this patient and discussed the same with the dictator. I agree with the dictator's note. Any additional findings/opinions/ etc. will be noted.
[2017-03-01] MEDS ORDERED: SENNOSIDES-DOCUSATE SODIUM 1 EACH TAB PO SCH (21:00)
== END 2017-03-01 15:28 | DRG 480 ==
LOC: EC 21:05 → 3SUR 22:57
PROVIDERS: ADMIT Orthopaedic Surgery Sports Medicine; ATTEND Orthopaedic Surgery Sports Medicine
PROC: 0QS636Z Reposition Right Upper Femur with Intramedullary Internal Fixation Device, Percutaneous Approach (ICD-10-PCS; principal; 2017-02-26 07:30)
DX: S72.141A Displaced intertrochanteric fracture of right femur, initial encounter for closed fracture (principal); E43 Unspecified severe protein-calorie malnutrition; G92 Toxic encephalopathy; Z68.1 Body mass index [BMI] 19.9 or less, adult; J44.9 Chronic obstructive pulmonary disease, unspecified; F03.90 Unspecified dementia, unspecified severity, without behavioral disturbance, psychotic disturbance, mood disturbance, and anxiety; M81.0 Age-related osteoporosis without current pathological fracture; T50.905A Adverse effect of unspecified drugs, medicaments and biological substances, initial encounter; E78.5 Hyperlipidemia, unspecified; I10 Essential (primary) hypertension; F41.9 Anxiety disorder, unspecified; Z79.899 Other long term (current) drug therapy; W18.30XA Fall on same level, unspecified, initial encounter
CPT/HCPCS: 36415; 71010; 73502; 80048; 80053; 81001; 82550; 82553; 83735; 84100; 84484; 85025; 85610; 85730; 87040; 87086; 88304; 93005; 96361; 96374; 99285